=== PATIENT | female | born 1935 | race Caucasian/White ===

== ENCOUNTER 2017-08-05 07:49 | Outpatient (CLI) | payer OTHER, MEDICARE ==
--- NOTE | 2017-08-06 09:32 | MMO ---
MAMMOGRAM DIGITAL SCREENING BILATERAL: DATE: 08/05/17 HISTORY: 81-year-old female for routine bilateral screening mammogram. COMPARISON: 07/24/16, 07/20/15, and 06/23/14. TECHNIQUE: Digital mammographic views. Computer-aided detection (CAD) utilized. FINDINGS: There are scattered areas of fibroglandular density. There is no evidence of suspicious mass, suspicious calcifications, or architectural distortion. The re is no significant interval change since the prior mammogram. IMPRESSION: 1. BIRADS 1 - Negative. 2. Recommendation: routine bilateral annual screening mammogram (unless the patient develops suspici ous clinical findings that would warrant earlier imaging follow up). ikm [] POS: [facility]
== END 2017-08-05 07:50 | disposition home or self-care (01) ==
LOC: SCSMAMMO 07:49
PROVIDERS: ATTEND Internal Medicine
DX: Z12.31 Encounter for screening mammogram for malignant neoplasm of breast (principal); I10 Essential (primary) hypertension
CPT/HCPCS: 77063; 77067; G0202

== ENCOUNTER 2018-08-20 13:23 | Outpatient (CLI) | payer OTHER, MEDICARE ==
--- NOTE | 2018-08-20 14:08 | MMO ---
BILATERAL SCREENING MAMMOGRAM: HISTORY: Screening. COMPARISON: Mammograms from 2017, 2016, and 2015. TECHNIQUE: Bilateral screening CC and MLO mammograms performed with computer-aided detection. FINDINGS: No suspicious mass, architectural distortion, or microcalcifications. Benign calcifications in the l eft breast. IMPRESSION: BI-RADS 2-Benign findings. Continued screening is recommended. POS: [facility]AMES
== END 2018-08-20 13:24 | disposition home or self-care (01) ==
LOC: SCSMAMMO 13:23
PROVIDERS: ATTEND Internal Medicine
DX: Z12.31 Encounter for screening mammogram for malignant neoplasm of breast (principal)
CPT/HCPCS: 77067